=== PATIENT | male | born 1990 | race Two or more races ===

== ENCOUNTER 2017-05-20 13:57 | Emergency (ER) | payer OTHER, SELFPAY ==
[~2017-05-20] VITALS: Ht 172.7 cm; Wt 67.1 kg
[2017-05-20 14:43] VITALS: BP 149/103
== END 2017-05-20 15:32 | disposition home or self-care (01) ==
LOC: ED 15:18
DX: J02.0 Streptococcal pharyngitis (principal)
CPT/HCPCS: 99283

== ENCOUNTER 2018-03-30 04:37 | Emergency (ER) | payer BC, OTHER ==
[~2018-03-30] VITALS: Ht 172.7 cm; Wt 68.0 kg
[2018-03-30 04:40] VITALS: BP 123/85
[2018-03-30] MEDS ORDERED: LIDOCAINE-MPF 1%, 5ML ONE (04:45)
[2018-03-30] MEDS ORDERED: DIPH,PERTUSS(ACELL),TET VAC/PF 0.5 ML IM-VACC ONE ×2 (04:46→06:30)
== END 2018-03-30 06:40 | disposition home or self-care (01) ==
LOC: ED 06:15
DX: S01.312A Laceration without foreign body of left ear, initial encounter (principal); X58.XXXA Exposure to other specified factors, initial encounter; Y93.89 Activity, other specified; Y92.410 Unspecified street and highway as the place of occurrence of the external cause; Y99.8 Other external cause status
CPT/HCPCS: 12051; 90471; 90715